=== PATIENT | female | born 1965 | race Two or more races ===

== ENCOUNTER 2019-05-08 11:17 | Emergency (ER) | payer MEDICAID ==
[~2019-05-08] VITALS: Ht 157.5 cm; Wt 62.6 kg
[2019-05-08] MEDS ORDERED: GLYC1TAB12 PO (11:41)
[2019-05-08] MEDS ORDERED: LACT1CAP61 PO (11:41)
[2019-05-08] MEDS ORDERED: MELA5TAB PO (11:41)
[2019-05-08] MEDS ORDERED: CRAN3875 PO (11:41)
[2019-05-08] MEDS ORDERED: ALBU2.5V38 IH (11:41)
[2019-05-08] MEDS ORDERED: MIRT15TA PO (11:41)
[2019-05-08] MEDS ORDERED: LEVO25TA7 PO (11:41)
[2019-05-08] MEDS ORDERED: CHOL200026 PO (11:41)
[2019-05-08] MEDS ORDERED: MIDO10TA PO (11:41)
[2019-05-08] MEDS ORDERED: SERT100T PO (11:41)
[2019-05-08] MEDS ORDERED: TRAZ-182 PO (11:41)
[2019-05-08] MEDS ORDERED: SENN-18 PO (11:41)
[2019-05-08] MEDS ORDERED: FERR325T23 PO (11:41)
[2019-05-08] MEDS ORDERED: ACETAMINOPHEN ES 500 MG TABLET ONE (11:45)
[2019-05-08] MEDS: ACETAMINOPHEN ES 500 MG TABLET PO ONE (12:04)
--- NOTE | 2019-05-08 12:06 | NUR ---
[id number] FROM [employer], WAS CHOKING AT FACILITY WHILE BEING SUCTIONED BY STAFF FEELING BETTER STOCKROOM ATTENDANT. PT C/O HEADACHE. PT AAOX4, VSS. RR EVEN & UNLABORED. DENIES CP, SOB, DIZZINESS, N/V @ THIS TIME. PT SEEN & EVAL'D BY DR. LOPEZ. PT GIVEN CRUSHED 1G OF TYLENOL ON A APPLE SAUCE, ABLE TO SWALLOW IT WITH WATER W/O DIFFICULTY, NO SIGN OF CHOKING EPISODE NOTED.
--- NOTE | 2019-05-08 12:56 | NUR ---
[facility] AR[facility]ED, ETA 1430, TRIP [id number]
--- NOTE | 2019-05-08 14:30 | NUR ---
Patient is resting comfortably in bed with eyes closed. Easily aroused. VSS
--- NOTE | 2019-05-08 14:35 | NUR ---
[facility] CALLED FOR NEW [facility] ETA. [id number]
--- NOTE | 2019-05-08 17:19 | NUR ---
Patient is resting comfortably in bed with eyes closed. Easily aroused. VSS
[2019-05-08 18:18] VITALS: BP 117/73
== END 2019-05-08 18:19 ==
LOC: ER 11:20
DX: R09.89 Other specified symptoms and signs involving the circulatory and respiratory systems (principal); G82.50 Quadriplegia, unspecified; R51 Headache; Z93.0 Tracheostomy status; Z87.440 Personal history of urinary (tract) infections
CPT/HCPCS: 71045-TC